=== PATIENT | male | born 1945 | race Caucasian/White ===

== ENCOUNTER → 2017-01-28 05:34 | Emergency (ER) | payer MEDICARE, OTHER ==
[2017-01-28 06:35] LABS: Hematocrit 45 % (42-52); Hemoglobin 15.1 g/dl (14.0-18.0); Mean Corpuscular HGB Conc 34 g/dl (31-36); Mean Corpuscular Hemoglobin 29 pg (27-31); Mean Corpuscular Volume 85 fL (80-94); Mean Platelet Volume 8 um3 (7.4-10.4); Red Blood Count 5.29 10^6/ul (4.0-5.4); Red Cell Distribution Width 15 % (10.5-15); White Blood Count 7.3 10^3/ul (3.5-10.8)
[2017-01-28 06:58] LABS: Albumin 4.2 g/dL (3.2-5.2); BUN/Creatinine Ratio 24.7 (8-20); Calcium 8.8 mg/dL (8.6-10.3); EGFR African American 113.9 (>60); EGFR Non-African American 88.6 (>60); Globulin 2.2 g/dL (2-4); Potassium 4.1 mmol/L (3.5-5.0); Total Bilirubin 0.8 mg/dL (0.2-1.0); Total Protein 6.4 g/dL (6.4-8.9)
--- NOTE | 2017-01-28 06:59 | ED ---
Mohinder Garcia SooYoung, scribed for Alex Dominguez MD on 01/28/17 at 0549 . 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 Per , pt woke up with a scream and his R arm was sticking straight out. Pt wasn't shaking, but he was "clearly having some sort of episode." She states it lasted approx 15 minutes. Denies prev episode similar to this. Pt doesn't remember what happens, remembers reading before bed and getting into the ambulance. States he feels OK now in ED. His health has been OK recently, denies recent illness. PCP is Dr. Francois, last saw him a few months ago. - History of Current Complaint Chief Complaint: EDSeizure Stated Complaint: SEIZURE Time Seen by Provider: 01/28/17 05:45 Hx Obtained From: Patient, Family/Kennel Attendant Onset/Duration: Sudden Onset, Resolved Timing: Intermittent Episodes Lasting: - 15 minutes Current Severity: None Pain Intensity: 0 Pain Scale Used: 0-10 Numeric Associated Signs and Symptoms: Positive: Confusion - mild - Allergy/Home Medications Allergies/Adverse Reactions: Allergies Allergy/AdvReac Type Severity Reaction Status Date / Time No Known Allergies Allergy Verified 03/01/14 09:12 Home Medications: Home Medications Metformin ER (NF) [Glucophage ER 750 MG TAB (NF)] 750 mg PO BID 01/28/17 [ History Confirmed 01/28/17] Minocycline (NF) 100 mg PO DAILY 01/28/17 [History Confirmed 01/28/17] Simvastatin TAB(NF) [Zocor(NF)] 20 mg PO DAILY 01/28/17 [History Confirmed 01/28] PMH/Surg Hx/FS Hx/Imm Hx Previously Healthy: No Endocrine/Hematology History: Reports: Hx Diabetes GI History: Denies: Other GI Disorders Sensory History: Reports: Hx Contacts or Glasses - READING Denies: Hx Hearing Aid Opthamlomology History: Reports: Hx Contacts or Glasses - READING - Surgical History Surgery Procedure, Year, and Place: RETINOPATHY DAMON, 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, [facility] Hx Anesthesia Reactions: No Infectious Disease History: No Infectious Disease History: Denies: Traveled Outside the [place] in Last 30 Days - Family History Known Family History: Positive: Other - neg: anaesthesia reaction - Social History Occupation: Retired Lives: With Family Alcohol Use: None Hx Substance Use: No Substance Use Type: Reports: None Hx Tobacco Use: No Smoking Status (MU): Never Smoked Tobacco Have You Smoked in the Last Year: No Review of Systems Negative: Fever Negative: Cough Neurological: Other - pos: mild confusion All Other Systems Reviewed And Are Negative: Yes Physical Exam Triage Information Reviewed: Yes Vital Signs On Initial Exam: Initial Vitals Temp Pulse Resp BP Pulse Ox 97.1 F 81 18 136/76 92 01/28/17 05:40 01/28/17 05:40 01/28/17 05:40 01/28/17 05:40 01/28/17 05:40 Vital Signs Reviewed: Yes Appearance: Positive: Well-Appearing, No Pain Distress Skin: Positive: Warm Head/Face: Positive: Normal Head/Face Inspection Eyes: Positive: EOMI, MICA ENT: Positive: Hearing grossly normal Neck: Positive: Supple, Nontender Respiratory/Lung Sounds: Positive: Breath Sounds Present Cardiovascular: Positive: RRR Abdomen Description: Positive: Nontender, Soft Bowel Sounds: Positive: Present Musculoskeletal: Positive: Strength/ROM Intact Neurological: Positive: Sensory/Motor Intact, Alert, Oriented to Person Place, Time Psychiatric: Positive: Affect/Mood Appropriate Diagnostics - Vital Signs Vital Signs Temp Pulse Resp BP Pulse Ox 01/28/17 05:40 97.1 F 81 18 136/76 92 - Laboratory Lab Results: Lab Results 01/28/17 01/28/17 01/28/17 Range/Units 06:25 06:25 06:25 WBC 7.3 (3.5-10.8) 10^3/ul RBC 5.29 (4.0-5.4) 10^6/ul Hgb 15.1 (14.0-18.0) g/dl Hct 45 (42-52) % MCV 85 (80-94) fL MCH 29 (27-31) pg MCHC 34 (31-36) g/dl RDW 15 (10.5-15) % Plt Count 113 L (150-450) 10^3/ul MPV 8 (7.4-10.4) um3 Neut % (Auto) 85.8 H (38-83) % Lymph % (Auto) 7.1 L (25-47) % [place] % (Auto) 3.8 (1-9) % Eos % (Auto) 1.9 (0-6) % Baso % (Auto) 1.4 (0-2) % Absolute Neuts (auto) 6.3 (1.5-7.7) 10^3/ul Absolute Lymphs (auto) 0.5 L (1.0-4.8) 10^3/ul Absolute Monos (auto) 0.3 (0-0.8) 10^3/ul Absolute Eos (auto) 0.1 (0-0.6) 10^3/ul Absolute Basos (auto) 0.1 (0-0.2) 10^3/ul Absolute Nucleated RBC 0 10^3/ul Nucleated RBC % 0 INR (Anticoag Therapy) 0.94 (0.89-1.11) Sodium 132 L (133-145) mmol/L Potassium 4.1 (3.5-5.0) mmol/L Chloride 103 (101-111) mmol/L Carbon Dioxide 22 (22-32) mmol/L Anion Gap 7 (2-11) mmol/L BUN 21 (6-24) mg/dL Creatinine 0.85 (0.67-1.17) mg/dL Est GFR ( Amer) 113.9 (>60) Est GFR (Non-Af Amer) 88.6 (>60) BUN/Creatinine Ratio 24.7 H (8-20) Glucose 269 H (70-100) mg/dL Lactic Acid (0.5-2.0) mmol/L Calcium 8.8 (8.6-10.3) mg/dL Magnesium 2.0 (1.9-2.7) mg/dL Total Bilirubin 0.80 (0.2-1.0) mg/dL AST 17 (13-39) U/L ALT 21 (7-52) U/L Alkaline Phosphatase 60 (34-104) U/L Total Protein 6.4 (6.4-8.9) g/dL Albumin 4.2 (3.2-5.2) g/dL Globulin 2.2 (2-4) g/dL Albumin/Globulin Ratio 1.9 (1-3) 01/28/17 Range/Units 06:25 WBC (3.5-10.8) 10^3/ul RBC (4.0-5.4) 10^6/ul Hgb (14.0-18.0) g/dl Hct (42-52) % MCV (80-94) fL MCH (27-31) pg MCHC (31-36) g/dl RDW (10.5-15) % Plt Count (150-450) 10^3/ul MPV (7.4-10.4) um3 Neut % (Auto) (38-83) % Lymph % (Auto) (25-47) % [place] % (Auto) (1-9) % Eos % (Auto) (0-6) % Baso % (Auto) (0-2) % Absolute Neuts (auto) (1.5-7.7) 10^3/ul Absolute Lymphs (auto) (1.0-4.8) 10^3/ul Absolute Monos (auto) (0-0.8) 10^3/ul Absolute Eos (auto) (0-0.6) 10^3/ul Absolute Basos (auto) (0-0.2) 10^3/ul Absolute Nucleated RBC 10^3/ul Nucleated RBC % INR (Anticoag Therapy) (0.89-1.11) Sodium (133-145) mmol/L Potassium (3.5-5.0) mmol/L Chloride (101-111) mmol/L Carbon Dioxide (22-32) mmol/L Anion Gap (2-11) mmol/L BUN (6-24) mg/dL Creatinine (0.67-1.17) mg/dL Est GFR ( Amer) (>60) Est GFR (Non-Af Amer) (>60) BUN/Creatinine Ratio (8-20) Glucose (70-100) mg/dL Lactic Acid 3.4 H* (0.5-2.0) mmol/L Calcium (8.6-10.3) mg/dL Magnesium (1.9-2.7) mg/dL Total Bilirubin (0.2-1.0) mg/dL AST (13-39) U/L ALT (7-52) U/L Alkaline Phosphatase (34-104) U/L Total Protein (6.4-8.9) g/dL Albumin (3.2-5.2) g/dL Globulin (2-4) g/dL Albumin/Globulin Ratio (1-3) Result Diagrams: 01/28/17 06:25 01/28/17 06:25 Lab Statement: Any lab studies that have been ordered have been reviewed, and results considered in the medical decision making process. - CT BRAIN CT CT Interpretation: No Acute Changes - IMPRESSION: Involutional changes with mild to moderate ventriculomegaly. No visible acute infarct. No mass. No hemorrhage. Osseous structures are intact. CT Interpretation Completed By: Radiologist NIH Scale - NIH Scale Level of Consciousness: Alert/Keenly Responsive Ask Patient the Month and His/Her Age: Both Correct Ask Pt to Open/Close Eyes and Academic Records Specialist/Release Non-Paretic Hand: Both Correctly Best Gaze (Only Horizontal Eye Movement): Normal Visual Field Testing: No Visual Loss Facial Paresis-Pt to Smile & Close Eyes or Grimace Symmetry: Normal/Symmetrical Motor Function - Right Arm: No Drift-Holds 10 Seconds Motor Function - Left Arm: No Drift-Holds 10 Seconds Motor Function - Right Leg: No Drift-Holds 10 Seconds Motor Function - Left Leg: No Drift-Holds 10 Seconds Limb Ataxia-Must be out of Proportion to Weakness Present: Absent Sensory (Use Pinprick to Test Arms/Legs/Trunk/Face): Normal Best Language (Describe Picture, Name Items): No Aphasia Dysarthria (Read Several Words): Normal Extinction and Inattention: No Abnormality Total Score: 0 Course/Dx - Course Course Of Treatment: Pt is a 72 y/o M BIBA 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 Per , pt woke up with a scream and his R arm was sticking straight out. Pt wasn't shaking, but he was "clearly having some sort of episode." Episode lasted approx 15 minutes. No prev episode similar to this. Pt doesn't remember what happens. States he feels OK now in ED. Denies any recent illness. PCP is Dr. Francois, last saw him a few months ago. Blood work results are without any significant abnormalities. Brain CT is nml. SO at shift change to Dr. Ram, pending EKG, UA results. - Diagnoses Provider Diagnoses: Seizure Discharge - Discharge Plan Condition: Stable Disposition: HOME Discharge Disposition Comment: SO at shift change to Dr. Ram, pending EKG, UA results. Prescriptions: levETIRAcetam TAB* [Keppra TAB*] 1,500 mg PO BID #90 tab Patient Education Materials: Nonepileptic Seizures (ED) Referrals: Alex Ramirez MD [Medical Doctor] - 02/25/17 (Follow up with Dr. Ramirez in 3- 4 weeks. ) Ishan Francois MD [Primary Care Provider] - 7 Days The documentation as recorded by the Mohinder piper SooYoung accurately reflects the service I personally performed and the decisions made by me, Alex Dominguez MD.
--- NOTE | 2017-01-28 08:56 | RAD ---
Indication: New onset seizure. Comparison: No relevant prior exams available on the [facility] [place] for [place]. Technique: Noncontrast CT vertex of skull through foramen magnum. Report: Mild prominence of the cerebral sulci. Mild prominence of the ventricles. Unremarkable basal cisterns. Negative for bello matter white matter obscuration, intra or extra-axial hemorrhage, or mass effect. Atherosclerotic calcification noted at the vertebral arteries and intracranial internal carotid arteries. Unremarkable partially visualized orbital structures. No suspicious calvarial or skull base lesions. Clear visualized paranasal sinuses and mastoid air spaces. Unremarkable scalp. IMPRESSION: Mild involutional change. No mass effect or acute intracranial process evident.
--- NOTE | 2017-01-28 12:01 | RAD ---
HISTORY: Seizure COMPARISONS: Head CT dated January 28, 2017 TECHNIQUE: The following sequences were obtained of the head: Sagittal T1-weighted images, axial T2-weighted images, axial FLAIR images, axial susceptibility weighted images, axial T1-weighted images, coronal T1, T2 and FLAIR images through the mesial temporal lobes. Additionally, axial diffusion-weighted images were obtained with calculated apparent diffusion coefficients. FINDINGS: HEMORRHAGE/INFARCT: There is no hemorrhage or acute infarct. MASSES/SHIFT: There is no mass or shift. EXTRA-AXIAL SPACES/MENINGES: There are no extra-axial fluid collections. SULCI AND VENTRICLES: There is mild and proportional enlargement of the sulci and ventricles. CEREBRUM: There is a small focus of elevated T2/FLAIR signal periventricular and subcortical white matter. The mesial temporal lobes are symmetric in size, architecture, and signal intensity. The collateral white matter bundles are symmetric. The mamillary bodies and temporal horns of the lateral ventricles are symmetric in size. There is no appreciable cortical dysplasia or heterotopia.. BRAINSTEM: There are no focal parenchymal abnormalities. CEREBELLUM: There are no focal parenchymal abnormalities. The cerebellar tonsils are normal in size and position. SELLA: The sella is normal. PINEAL: The pineal region is clear. CP ANGLE/TEMPORAL BONES: The labyrinthine structures are grossly normal. VESSELS: Normal flow-voids are noted within the visualized vertebral vasculature. DIFFUSION ABNORMALITIES: There are no diffusion abnormalities. PARANASAL SINUSES/MASTOIDS: The paranasal sinuses are clear. ORBITS: The orbits are unremarkable. BONES AND SOFT TISSUE: No bone or soft tissue abnormalities are noted. OTHER: None IMPRESSION: 1. MILD DIFFUSE INVOLUTIONAL CHANGE. 2. THERE ARE MULTIPLE FOCI OF ELEVATED T2/FLAIR SIGNAL WITHIN THE PERIVENTRICULAR AND SUBCORTICAL WHITE MATTER. WHILE THESE FINDINGS ARE NONSPECIFIC, THEY CAN BE SEEN IN ASSOCIATION WITH MIGRAINE HEADACHE, THE SEQUELA OF PREVIOUS INFECTION OR INFLAMMATION, AND CHRONIC SMALL VESSEL ISCHEMIA. DEMYELINATING DISEASE IS ALSO WITHIN THE DIFFERENTIAL, BUT IS CONSIDERED LESS LIKELY IN THE ABSENCE OF THE APPROPRIATE CLINICAL PRESENTATION. 3. THE MESIAL TEMPORAL LOBES ARE SYMMETRIC.
[2017-01-28 16:14] VITALS: BP 135/78
--- NOTE | 2017-01-28 18:52 | ED ---
I, Keith Cameron, scribed for Rome Ram MD on 01/28/17 at 0800 . Progress - Progress Note Progress Note: The patient is a sign out from Dr. Dominguez at shift change. The patient reports that he is tired. He denies a HOLLIS at this time. EKG at 08:15 reveals sinus rhythm at [address] elevations. At 08:41, I consulted with Dr. Ramirez, neurology. Dr. Ramirez does not think that the patient had a seizure. He recommended that the patient be discharged and follow up with him. When I re-examined the patient at 08:47, the says (different from Dr. Parish account of events) that the patient was stiff, foaming at the mouth, and could not be woken up for 10 minutes. They furthermore state he was postictal until he got to the ED (20-22 minutes after the start of the episode) . I consulted again with Dr. Ramirez at 09:03 and informed him of the new information. I will now order an EEG and Brain MRI. Brain MRI reveals 1. MILD DIFFUSE INVOLUTIONAL CHANGE. 2. THERE ARE MULTIPLE FOCI OF ELEVATED T2/FLAIR SIGNAL WITHIN THE PERIVENTRICULAR AND SUBCORTICAL WHITE MATTER. WHILE THESE FINDINGS ARE NONSPECIFIC, THEY CAN BE SEEN IN ASSOCIATION WITH MIGRAINE HEADACHE, THE SEQUELA OF PREVIOUS INFECTION OR INFLAMMATION, AND CHRONIC SMALL VESSEL ISCHEMIA. DEMYELINATING DISEASE IS ALSO WITHIN THE DIFFERENTIAL, BUT IS CONSIDERED LESS LIKELY IN THE ABSENCE OF THE APPROPRIATE CLINICAL PRESENTATION. 3. THE MESIAL TEMPORAL LOBES ARE SYMMETRIC. I consulted again with Dr. Ramirez at 12:25, who will come to the ED to see the patient. The patient is stable and will be discharged. He is instructed to follow up with Dr. Ramirez in 3-4 weeks. Course/Dx - Course Course Of Treatment: The patient is a sign out from Dr. Dominguez at shift change. The patient reports that he is tired. He denies a HOLLIS at this time. EKG at 08:15 reveals sinus rhythm at [address] elevations. At 08:41, I consulted with Dr. Ramirez, neurology. Dr. Ramirez does not think that the patient had a seizure. He recommended that the patient be discharged and follow up with him. When I re-examined the patient at 08:47, the says (different from Dr. Parish account of events) that the patient was stiff, foaming at the mouth, and could not be woken up for 10 minutes. They furthermore report that the patient was postictal until he got to the ED (20-22 minutes after the start of the episode). I consulted again with Dr. Ramirez at 09:03 and informed him of the new information. I will now order an EEG and Brain MRI. I consulted again with Dr. Ramirez at 12:25, who will come to the ED to see the patient. Bloodwork is without significant abnormality except glucose 269. Head CT shows no acute intracranial pathology. I interviewed the patient and the patients daughter and , and they report that the patient made a loud sound and screamed/moaned and then immediately had stiffness of his entire body for about 5 minutes with foaming at the mouth. After this, he became confused for about 30-40 minutes. Therefore, I discussed the case with Dr. Shook, who ordered an MRI of the brain and an EEG. After he reviewed the test results, he came down and consulted for the patient. He reported in fact that the patient seems to have had seizure activity; therefore, he requests to give the patient Keppra 1g bolus and then give a prescription of Keppra 400mg in the morning and 1000mg at night and to follow up with him in 3-4 weeks. He is hemodynamically stable and alert and oriented x3. - Diagnoses Provider Diagnoses: Seizure - Provider Notifications Discussed Care Of Patient With: Alex Ramirez Time Discussed With Above Provider: 08:47 Instructed by Provider To: Other - Dr. Ramirez, neurology, does not think that the patient had a seizure. He recommended that the patient be discharged and follow up with him. I consulted again with Dr. Ramirez at 09:03 and informed him of the new information. I will now order an EEG and Brain MRI. The documentation as recorded by the Nisha piper Thomas accurately reflects the service I personally performed and the decisions made by me, Rome Ram MD.
--- NOTE | 2017-01-28 20:11 | CONS ---
CONSULTATION REPORT: DATE OF CONSULT: 01/28/17 - EMERGENCY DEPT PATIENT OF: Dr. Ram. HISTORY OF PRESENT ILLNESS: This is a 72-year-old man who presented in the cardiovascular technologist with a probable seizure. His was sleeping and was awoken by an odd groan and found him with his right arm stiff right in front of him and he was unresponsive. He then developed generalized clonic activity, had teeth clenching and lost his urine. This entire seizure lasted about 10 to 15 minutes that the witnessed and then was confused and lethargic afterwards. He has had no prior seizures or staring spells. He has no history of depression. There is no family history for seizures. He drives. He has a history of diabetes and hypercholesterolemia. PAST SURGICAL HISTORY: He has had no recent surgeries. MEDICATIONS: Include: 1. Metformin 750 twice a day. 2. Simvastatin 20 mg daily. 3. Minocycline 100 mg daily. FAMILY HISTORY: There is no family history for seizures. SOCIAL HISTORY: He does not smoke, use drugs or drink alcohol. He does not have a history of hyperglycemia, although does not check his blood sugar at home. His blood sugar tends to run on the high side. REVIEW OF SYSTEMS: Negative in all 14 spheres other than the HPI. PHYSICAL EXAM: Vital Signs: Temperature 97.1, pulse 72, respirations 18, blood pressure 145/74. He is alert and oriented with normal speech and comprehension. Cranial nerves II through XII were intact. Fundi showed sharp discs. Motor exam revealed normal tone and strength, coordination and gait. Fine motor was intact on the right side as well as left. No pronator drift. Sensation intact to light touch. Reflexes were 1 and equal with downgoing toes. Chest: Clear. Cardiovascular: Regular rate and rhythm. Abdomen: Soft with positive bowel sounds. Neck was supple. DIAGNOSTIC STUDIES/LAB DATA: I reviewed his MRI scan, which showed some diffuse white matter disease, most likely from small vessel ischemic disease. His EEG showed some rare sharply contoured waves in his left frontotemporal area suspicious for epileptiform potentials. His white count was 7.3, hematocrit 45, platelets 111,000. Normal INR. CMP had a sodium of 132, glucose 269, lactic acid 3.4, otherwise normal. CT scan was also done, which did not show any additional findings. MRI scan was more informative. IMPRESSION: I discussed with Edilberto and his who I spoke to on the phone that he had most likely a partial seizure, which was relatively prolonged, lasting at least 10 to 15 minutes and had secondary generalization. The most likely etiology might be small old scar in from the small vessel ischemic disease. Given the length of the seizure and that he had focal seizures secondary to a scar and that he strongly wants to drive in the future, it would be most reasonable to have him on anticonvulsants to discuss options. There is no history of depression or mood issues and we are going to begin him on Keppra and I discussed side effects. At this time, he will get 1000 mg IV in the ER and then to begin 500 in the morning and 1000 at night, first dose tonight. I discussed seizure precautions in terms of no high heights, be careful around water and that he is not going to drive a car until this is reported to DMV. I discussed with him that it may be months before the DMV would sign off on him driving. He will go home with Keppra as discussed and get a level in a few weeks. I will see him back in the office in about 5 weeks ' time. Family is aware that the Keppra will increase protection against seizures, but not a guarantee that seizures will not recur. Thank you for sharing his case. [id number]/[facility] #: [id number] LIDIA
--- NOTE | 2017-01-29 00:44 | EEG ---
ELECTROENCEPHALOGRAPHY: DATE OF STUDY: 01/28/17 - EMERGENCY DEPT PATIENT OF: Dr. Ram in [facility]. CLINICAL PROBLEM: This 72-year-old man being evaluated for probable new onset of seizure in his sleep. MEDICATIONS: None listed. REPORT: With the patient awake, background cerebral activity consists of admixed beta frequency up to 15 Hz with admixed alpha range frequencies. There is rare suspicious sharply contoured activity in the left frontotemporal head region. This patient's sleep background consists of diffuse delta and theta activity. CLINICAL IMPRESSION: No clearcut epileptiform potentials are noted during this awake and sleep EEG, but there are some sharply contoured waves noted in the left frontotemporal head region that are suspicious for epileptiform discharges. [id number]/[facility] #: [id number] [facility]ERS[facility] HOSPITALLorena
== END | disposition home or self-care (01) ==
LOC: ED 05:34
DX: R56.9 Unspecified convulsions (principal); R41.0 Disorientation, unspecified
CPT/HCPCS: 36415; 70450; 70551; 80053; 83605; 83735; 85025; 85610; 93005; 95819; 99284

== ENCOUNTER 2017-05-18 09:10 | Day surgery (SDC) | payer MEDICARE, OTHER ==
[~2017-05-18 09:10] MED LIST: Acetaminophen TAB* 325 MG PO PRN; Buffered Lidocaine 0.9% SYRIN* 5 ML/SYR SYRINGE INTRADERM ONE
[2017-05-18] MEDS ORDERED: Midazolam* 1 MG/ML 5 ML VIAL (5 MG) ONE (10:55)
[2017-05-18] MEDS ORDERED: fentaNYL* 50 MCG/ML 2 ML VIAL (100 MCG VIAL) ONE (10:55)
[2017-05-18 12:38] VITALS: BP 131/73
[2017-05-18] MEDS ORDERED: Cyclopentolate 1% OPTH.SOL* 2 ML BTL ONE (14:17)
[2017-05-18] MEDS ORDERED: Neomycin/Polymy/Dex OPHTH.OIN* 3.5 GM ONE (14:17)
[2017-05-18] MEDS ORDERED: Tropicamide 1% OPTH.SOL* BTL ONE (14:17)
[2017-05-18] MEDS ORDERED: Lidocaine 1% MPF* 2 ML VIAL ONE (14:17)
[2017-05-18] MEDS ORDERED: Phenylephrine 2.5% OPTH.SOL* 2 ML BTL ONE (14:17)
[2017-05-18] MEDS ORDERED: Ketorolac 0.5% OPHTH (NF) 0.5 % 5 ML BTL ONE (14:17)
[2017-05-18] MEDS ORDERED: Tetracaine 0.5% OPTH.SOL 4 ML* 1 DROP BTL ONE (14:17)
[2017-05-18] MEDS ORDERED: Phenylephr/Ketorolac 1%/0.3% OPH DROP BTL ONE (16:23)
--- NOTE | 2017-05-19 02:51 | OP ---
DATE OF OPERATION: 05/18/17 [facility] DATE OF : 45 SURGEON: Dr. Kris De Souza. FINANCIAL ADVISER: None. ANESTHESIOLOGIST: Keith Sifuentes MD ANESTHESIA: Topical with intravenous sedation. PRE-OP DIAGNOSIS: Cataract, left eye. POST-OP DIAGNOSIS: Cataract, left eye. OPERATIVE PROCEDURE: Phacoemulsification and cataract extraction with posterior chamber intraocular lens implant, left eye. COMPLICATIONS: None. BLOOD LOSS: None. DESCRIPTION OF PROCEDURE: The patient was brought to the operating room and received a small amount of intravenous sedation. A drop of Tetracaine was placed in his left eye. He was prepped and draped in the usual sterile fashion for ophthalmic surgery and attention was directed to the left eye where a speculum was placed. A paracentesis was created at the 5 o'clock position and 0.1 cc of 1 percent preservative-free Lidocaine was injected into the anterior chamber followed by DisCoVisc. The eye was digitally stabilized while a 2.75 mm keratome was used to create a triplanar clear corneal incision at the 3 o'clock position. A continuous curvilinear capsulorrhexis was created with a cystotome and Utrata forceps. BSS on a cannula was used to hydrodissect the lens from the capsule. Phacoemulsification was performed in a [id number] technique to create four fragments which were removed. Residual cortical material was removed with irrigation and aspiration. DisCoVisc was used to inflate the capsular bag and an [id number] 21.5 diopter lens was folded and inserted into the capsular bag. DisCoVisc was removed using irrigation and aspiration. BSS on a cannula was used to hydrate the corneal stroma and seal the wound. At the end of the case the pupil was round and the lens was centered. The eye was of normal pressure and the wound was water tight. The speculum was removed and topical Maxitrol ointment was placed on the surface of the eye. The eye was closed, patched and shielded and the patient was sent to the recovery room in stable condition with post operative instructions and follow-up appointment given. [id number]/[facility] #: [id number] MTDD
== END 2017-05-18 12:41 | disposition home or self-care (01) ==
LOC: OREAST 09:10
PROVIDERS: ATTEND Ophthalmology
DX: E11.36 Type 2 diabetes mellitus with diabetic cataract (principal); H25.12 Age-related nuclear cataract, left eye; Z79.84 Long term (current) use of oral hypoglycemic drugs; E78.00 Pure hypercholesterolemia, unspecified; R56.9 Unspecified convulsions; R53.83 Other fatigue
CPT/HCPCS: A9270-GY; C9447; J2250; J3010

== ENCOUNTER 2017-05-25 06:28 | Day surgery (SDC) | payer MEDICARE, OTHER ==
[2017-05-25] MEDS ORDERED: fentaNYL* 50 MCG/ML 2 ML VIAL (100 MCG VIAL) ONE (07:30)
[2017-05-25] MEDS ORDERED: Midazolam* 1 MG/ML 2 ML VIAL (2 MG) ONE (07:30)
[2017-05-25] MEDS ORDERED: Phenylephr/Ketorolac 1%/0.3% OPH DROP BTL ONE (07:56)
[2017-05-25] MEDS ORDERED: Tetracaine 0.5% OPTH.SOL 4 ML* 1 DROP BTL ONE (07:57)
[2017-05-25] MEDS ORDERED: Phenylephrine 2.5% OPTH.SOL* 2 ML BTL ONE (07:57)
[2017-05-25] MEDS ORDERED: Ketorolac 0.5% OPHTH (NF) 0.5 % 5 ML BTL ONE (07:57)
[2017-05-25] MEDS ORDERED: Neomycin/Polymy/Dex OPHTH.OIN* 3.5 GM ONE (07:57)
[2017-05-25] MEDS ORDERED: Tropicamide 1% OPTH.SOL* BTL ONE (07:57)
[2017-05-25] MEDS ORDERED: Lidocaine 1% MPF* 2 ML VIAL ONE (07:57)
[2017-05-25] MEDS ORDERED: Cyclopentolate 1% OPTH.SOL* 2 ML BTL ONE (07:57)
[2017-05-25 08:54] VITALS: BP 135/74
--- NOTE | 2017-05-26 00:22 | OP ---
DATE OF OPERATION: 05/25/17 [facility] DATE OF : 45 SURGEON: Dr. Kris De Souza. VPK TEACHER: None. ANESTHESIA: Topical with intravenous sedation. PRE-OP DIAGNOSIS: Cataract, right eye. POST-OP DIAGNOSIS: Cataract, right eye. OPERATIVE PROCEDURE: Phacoemulsification and cataract extraction with posterior chamber intraocular lens implant, right eye. COMPLICATIONS: None. BLOOD LOSS: None. DESCRIPTION OF PROCEDURE: The patient was brought to the operating room and received a small amount of intravenous sedation. A drop of Tetracaine was placed in his right eye. He was prepped and draped in the usual sterile fashion for ophthalmic surgery and attention was directed to the right eye where a speculum was placed. A paracentesis was created at the 11 o'clock position and 0.1 cc of 1 percent preservative-free Lidocaine was injected into the anterior chamber followed by DisCoVisc. The eye was digitally stabilized while a 2.75 mm keratome was used to create a triplanar clear corneal incision at the 9 o'clock position. A continuous curvilinear capsulorrhexis was created with a cystotome and Utrata forceps. BSS on a cannula was used to hydrodissect the lens from the capsule. Phacoemulsification was performed in a divide-and- conquer technique to create four fragments which were removed. Residual cortical material was removed with irrigation and aspiration. DisCoVisc was used to inflate the capsular bag and an AU00T0 20.5 diopter lens was folded and inserted into the capsular bag. DisCoVisc was removed using irrigation and aspiration. BSS on a cannula was used to hydrate the corneal stroma and seal the wound. At the end of the case the pupil was round and the lens was centered. The eye was of normal pressure and the wound was water tight. The speculum was removed and topical Maxitrol ointment was placed on the surface of the eye. The eye was closed, patched and shielded and the patient was sent to the recovery room in stable condition with post operative instructions and follow-up appointment given. [id number] #: [id number] MTDD
== END 2017-05-25 08:35 | disposition home or self-care (01) ==
LOC: OREAST 06:28
PROVIDERS: ATTEND Ophthalmology
DX: H25.11 Age-related nuclear cataract, right eye (principal); R53.83 Other fatigue; E11.9 Type 2 diabetes mellitus without complications; Z79.84 Long term (current) use of oral hypoglycemic drugs; E78.00 Pure hypercholesterolemia, unspecified; R56.9 Unspecified convulsions
CPT/HCPCS: A9270-GY; C9447; J2250; J3010; V2632

== ENCOUNTER → 2018-08-18 08:21 | Day surgery (SDC) | payer MEDICARE, OTHER ==
[~2018-08-18 08:21] MED LIST changes: +ATORVASTATIN CALCIUM 40 MG PO SCH; -Acetaminophen TAB* 325 MG PO PRN; +Aspirin 81 mg CHEW TAB* 81 MG TAB.CHEW ONE; +Aspirin 81 mg CHEW TAB* 81 MG TAB.CHEW PO SCH; -Buffered Lidocaine 0.9% SYRIN* 5 ML/SYR SYRINGE INTRADERM ONE; +Cyanocobalamin TAB* 500 MCG PO SCH; +Diazepam TAB(*) 5 MG ONE; +Heparin 2 UNITS/ML IVPREMIX* 3,000 UNIT/1,500 ML BAG IV ONE; +Heparin(*) 1000 UNIT/ML 10 ML VIAL CATH LAB IV ONE; +Iohexol 350 (CONTRAST) 200 ML MDV IV ONE; +Lidocaine 1% INJ* 10 MG/ML 30 ML SDV ONE; +Metoprolol Succinate XL TAB* 25 MG PO SCH; +Midazolam* 1 MG/ML 5 ML VIAL (5 MG) ONE; +NS 0.9% 1000 ML** 1,000 ML IV SCH; +VERAPAMIL 2.5 MG/ML 2 ML VIAL ** 5 mg/2 ml ONE; +diPHENhydraMINE PO* 25 MG ONE; +fentaNYL* 50 MCG/ML 2 ML VIAL (100 MCG VIAL) ONE; +levETIRAcetam TAB* 500 MG PO SCH; +nitroGLYCERIN DRIP* 25,000 MCG/250 ML BTL ONE
[2018-08-18 14:00] VITALS: BP 127/79
--- NOTE | 2018-08-18 14:53 | CATH ---
CC: Dr. Jose R Montanez, [facility]; Dr. Ash Ahmadi; Dr. Kris Gardner, Department of Cardiovascular Surgery, [place], [place] * CARDIAC CATHETERIZATION REPORT: DATE OF PROCEDURE: 08/18/18 - [facility] CATH INDICATION FOR THE PROCEDURE: Asked by Dr. Jose R Montanez (the patient's primary guest services coordinator) to perform diagnostic coronary catheterization in light of abnormal exercise stress test, symptoms of angina, and a reported markedly abnormal coronary CTA suggesting a 75% left main lesion and an ill-defined proximal LAD. PROCEDURES: Coronary arteriography, left heart catheterization, left ventriculography. CONSENT: The patient was interviewed and examined in the holding area, where the risks and benefits were explained. He and his understood them and he wished to proceed. PRE-CARDIAC CATHETERIZATION LABORATORY RESULTS: Hemoglobin and hematocrit of 15.3 and 44 with a platelet count of 156,000. BUN and creatinine of 16 and 0.9 , sodium 138, potassium 4.3, chloride 102, bicarb 28. INR was 0.96. APPROACH TAKEN: In the holding area of the cathode ray tube salvage processor, the patient's right radial artery was ultrasound and found to be acceptable for an approach and as such, this was the approach taken. EQUIPMENT UTILIZED: 1. Right radial artery sheath - A 6-South African Glidesheath. 2. Diagnostic coronary catheters - A 5-South African TIG 4 curve catheter for the right coronary artery and a 5-South African FL3.5 curve catheter for the left coronary artery. 3. The diagnostic guidewire - A 260 length Lay curved guidewire. 4. The left heart catheterization catheter was a 5-South African TIG Performa radial catheter. 5. Closure device was a radial band by [employer]. MEDICATIONS GIVEN: Included Benadryl 25 mg, Valium 2.5 mg p.o. The patient had already taken his aspirin 81 mg. DESCRIPTION OF PROCEDURE: The patient was brought to the cardiovascular laboratory, where a formal time-out was performed. He was prepped and draped in a sterile fashion and the right radial artery area was anesthetized with 1% lidocaine. Under ultrasound guidance, the right radial artery was cannulated and the sheath was placed. Diagnostic coronary arteriography was performed followed by central aortic pressure measured in the ascending aorta with a pigtail catheter. The catheter was passed across the aortic valve into the left ventricle, where left ventricular pressure was recorded and left ventriculography was performed utilizing a total of 28 cc of Omnipaque dye at a rate of 14 cc per second. The catheter was then pulled back across the aortic valve to recheck gradient. Following this, the catheter and the sheath was removed and hemostasis was obtained with the Vasc Band. The reverse Barbeau was a B. The total contrast used was 93 cc of Omnipaque dye. The radiation exposure included 7 minutes of fluoro time. The air kerma radiation was 1484 mGy. The DAP radiation was 8015 microgray per m2. RESULTS: HEMODYNAMIC DATA: Left heart catheterization revealed central aortic pressure of 157/72 with a mean of 109, left ventricular pressure 155 over left ventricular end- diastolic pressure of 13. LEFT VENTRICULOGRAPHY: Performed in the RODRIGUEZ projection revealed symmetrical contraction of the left ventricle with minimal high anterior wall hypokinesis. Overall EF estimated at 55%. No mitral regurgitation was noted. CORONARY ARTERIOGRAPHY: A. Right coronary artery - A dominant vessel supplying a small first acute marginal branch. The second acute marginal branch was a cvnljvyn-rl-sfrum caliber vessel, which extended to the mid inferior apical region supplying the mid inferior apical wall and also helping supply collaterals to the left anterior descending artery in a retrograde fashion. The continuation of the right coronary artery supplied a smaller posterior descending artery, which supplied the proximal to mid segment and small posterior left ventricular branches. Of note, prior to the posterior descending artery, right near the takeoff of the AV david branch, there was a mild narrowing of 35% seen. B. Left coronary artery: 1. Left main - Heavily calcified particularly in its mid to distal region with narrowing of approximately 35% to 40% when viewed in the BENINESE caudal projection and the RODRIGUEZ caudal projection, basing it on where the totally occluded LAD appears to originate from. 2. Left anterior descending artery - Totally occluded proximal with a thread-like small segment with retrograde filling via the right coronary artery as described earlier. 3. Circumflex artery - A nondominant vessel supplying a high first obtuse marginal branch followed by a second obtuse marginal branch from a very short distance past that point. The ostium of these vessels is not well defined , but appeared to have iywn-mt-jpmaviyl narrowing (40-50%). The continuation of circumflex in the AV groove supplied a small third obtuse marginal branch and ended in a moderate size fourth obtuse marginal branch. OVERALL ASSESSMENT: Fairly well preserved left ventricular systolic function with high anterior wall hypokinesis seen with normal ejection fraction. Significant coronary artery disease involving a totally occluded ostial/proximal LAD with retrograde filling from the right coronary artery. I am not convinced that the distal left main is significant given where I believe the takeoff of the left anterior descending artery is. After that point, clearly the beginning portion of the circumflex is a smaller caliber. I suggest correlation with the CTA performed in [facility] with the radiologist, cardiothoracic surgeon, and guest services coordinator to be able to further analyze where the left main takeoff potentially originates. With the heavy calcification, I am not sure we would be able to see this by IVUS due to significant shadowing. I discussed the case with Dr. Montanez, who agreed with this approach at this point. I will personally speak with Dr. Kris Gardner and plan to send them a CD of this study in addition to e-mailing him the study so he can review this with his guest services coordinator and the radiology department. [id number]/CPS #: [id number] LIDIA
== END | disposition home or self-care (01) ==
LOC: CHICATH 08:21
PROVIDERS: ATTEND Internal Medicine Cardiovascular Disease
DX: I25.119 Atherosclerotic heart disease of native coronary artery with unspecified angina pectoris (principal); Z79.84 Long term (current) use of oral hypoglycemic drugs; Z87.891 Personal history of nicotine dependence; E11.69 Type 2 diabetes mellitus with other specified complication; I10 Essential (primary) hypertension; E78.5 Hyperlipidemia, unspecified
CPT/HCPCS: 76937; 93458; A9270-GY; J1644; J2250; J3010

== ENCOUNTER 2018-10-13 05:48 | Day surgery (SDC) | payer MEDICARE, OTHER ==
[~2018-10-13 05:48] MED LIST changes: -ATORVASTATIN CALCIUM 40 MG PO SCH; -Aspirin 81 mg CHEW TAB* 81 MG TAB.CHEW ONE; -Aspirin 81 mg CHEW TAB* 81 MG TAB.CHEW PO SCH; +Buffered Lidocaine 1% SYRIN* 1 ML/SYRINGE INTRADERM ONE; -Cyanocobalamin TAB* 500 MCG PO SCH; -Diazepam TAB(*) 5 MG ONE; -Heparin 2 UNITS/ML IVPREMIX* 3,000 UNIT/1,500 ML BAG IV ONE; -Heparin(*) 1000 UNIT/ML 10 ML VIAL CATH LAB IV ONE; -Iohexol 350 (CONTRAST) 200 ML MDV IV ONE; -Lidocaine 1% INJ* 10 MG/ML 30 ML SDV ONE; -Metoprolol Succinate XL TAB* 25 MG PO SCH; -Midazolam* 1 MG/ML 5 ML VIAL (5 MG) ONE; -NS 0.9% 1000 ML** 1,000 ML IV SCH; -VERAPAMIL 2.5 MG/ML 2 ML VIAL ** 5 mg/2 ml ONE; -diPHENhydraMINE PO* 25 MG ONE; -fentaNYL* 50 MCG/ML 2 ML VIAL (100 MCG VIAL) ONE; -levETIRAcetam TAB* 500 MG PO SCH; -nitroGLYCERIN DRIP* 25,000 MCG/250 ML BTL ONE
[2018-10-13] MEDS ORDERED: Lactated Ringers 1000 ML Bag* 1,000 ML IV SCH (06:00)
[2018-10-13] MEDS ORDERED: ceFAZolin 2 GM PREMIX in ORs 2 GM/50 ML BAG IVPB ONE (06:47)
[2018-10-13] MEDS ORDERED: Buffered Lidocaine 1% SYRIN* 1 ML/SYRINGE INTRADERM ONE (06:47)
[2018-10-13] MEDS ORDERED: Lidocain 1% EPI 1:100,000 * 30 ML MDV ONE (07:12)
[2018-10-13] MEDS ORDERED: Mineral Oil Sterile, TOPICAL* 25 ML BTL ONE (07:12)
[2018-10-13] MEDS ORDERED: Bupivacaine 0.25% SDV PF* 10 ML VIAL INJ ONE ×2 (07:13→07:35)
[2018-10-13] MEDS ORDERED: Naloxone* 0.4 MG/ML 1 ML VIAL IV PRN (07:27)
[2018-10-13] MEDS ORDERED: fentaNYL* 50 MCG/ML 2 ML VIAL (100 MCG VIAL) ONE (07:31)
[2018-10-13] MEDS ORDERED: Midazolam* 1 MG/ML 5 ML VIAL (5 MG) ONE (07:31)
[2018-10-13 09:58] VITALS: BP 126/73
== END 2018-10-13 10:00 | disposition home or self-care (01) ==
LOC: OR 05:48
PROVIDERS: ATTEND Plastic Surgery
DX: C43.71 Malignant melanoma of right lower limb, including hip (principal); E11.9 Type 2 diabetes mellitus without complications; Z79.84 Long term (current) use of oral hypoglycemic drugs; I25.10 Atherosclerotic heart disease of native coronary artery without angina pectoris; Z87.891 Personal history of nicotine dependence
CPT/HCPCS: 88305; A9270-GY; J0690; J2250; J3010; J3490

== ENCOUNTER 2019-08-29 08:20 | Emergency (ER) | payer MEDICARE, OTHER ==
--- NOTE | 2019-08-29 08:53 | ED ---
Neurological HPI - HPI Summary HPI Summary: 74 year old M presenting to [facility] with a chief complaint of leaning to the left while walking last week which lasted 3-4 hours and has since resolved. The patient rates the pain 0/10 in severity. Patient reports that he has noticed a stooped posture recently. Symptoms aggravated by nothing. Patient reports that he called his PCP yesterday and was advised to come to the emergency department for further evaluation. The patient denies any dizziness, back pain, or weakness. He has a history of a seizure in the past. The patient has a history of diabetes. Medication list reviewed. Allergy list reviewed. - History of Current Complaint Chief Complaint: EDNeurologicalDeficit Stated Complaint: GENERAL Time Seen by Provider: 08/29/19 08:37 Hx Obtained From: Patient Onset/Duration: Sudden Onset Timing: Sudden Onset Current Severity: None Pain Intensity: 0 Pain Scale Used: 0-10 Numeric Episode Lasting: Hours Number of Episodes: 1 Aggravating: Nothing Associated Signs and Symptoms: Positive: Negative - Back pain. Negative: Weakness, Dizziness - Allergy/Home Medications Allergies/Adverse Reactions: Allergies Allergy/AdvReac Type Severity Reaction Status Date / Time No Known Allergies Allergy Verified 08/29/19 08:33 Home Medications: Home Medications levETIRAcetam TAB* [Keppra TAB*] 500 mg PO QAM 05/11/17 [History Confirmed 08/28] Atorvastatin Calcium [Lipitor] 80 mg PO DAILY 08/17/18 [History Confirmed ] Metoprolol Succinate XL TAB* [Toprol XL TAB*] 12.5 mg PO BID 08/17/18 [History Confirmed 08/29/19] Aspirin 81 mg PO DAILY 08/18/18 [History Confirmed 08/29/19] Metformin HCl [Metformin HCl ER] 750 mg PO BID 10/04/18 [History Confirmed 08/28] levETIRAcetam [Levetiracetam] 1,000 mg PO QPM 11/25/18 [History Confirmed ] Aspirin 81 mg CHEW TAB* 81 mg PO DAILY 21 Days #21 tab.chew 08/29/19 [Rx] Clopidogrel TAB* [Plavix TAB*] 75 mg PO DAILY 21 Days #21 tab 08/29/19 [Rx] PMH/Surg Hx/FS Hx/Imm Hx Endocrine/Hematology History: Reports: Hx Diabetes Cardiovascular History: Reports: Hx Angina, Hx Cardiomegaly - hardining of arteries, Hx Coronary Artery Disease, Hx Hypercholesterolemia, Hx Hypertension, Hx Myocardial Infarction, Other Cardiovascular Problems/Disorders - high cholesterol Denies: Hx Pacemaker/ICD, Hx Valvular Heart Disease Respiratory History: Denies: Hx Asthma, Hx Chronic Obstructive Pulmonary Disease (COPD) GI History: Denies: Other GI Disorders History: Denies: Hx Chronic Renal Failure, Hx Renal Disease Sensory History: Reports: Hx Cataracts - BILATERAL, Hx Contacts or Glasses - reading Denies: Hx Hearing Aid Opthamlomology History: Reports: Hx Cataracts - BILATERAL, Hx Contacts or Glasses - reading Neurological History: Reports: Hx Seizures - last time 2 years ago Psychiatric History: Denies: Hx Panic Disorder - Cancer History Hx Chemotherapy: No - Surgical History Surgery Procedure, Year, and Place: RETINOPATHY DAMON, 11/2013, [facility]. bilat cataracts extraction with IOL. [facility] basal cell cancer scalp 2013 Hx Anesthesia Reactions: No Infectious Disease History: No Infectious Disease History: Denies: Traveled Outside the [place] in Last 30 Days - Family History Known Family History: Positive: Other - neg: anaesthesia reaction - Social History Alcohol Use: Rare Hx Substance Use: No Substance Use Type: Reports: None Hx Tobacco Use: No Smoking Status (MU): Former Smoker Have You Smoked in the Last Year: No Review of Systems Musculoskeletal: Negative - Back pain Neurological/Mental Status: Negative - Dizziness, Other - Walking differently Negative: Weakness All Other Systems Reviewed And Are Negative: Yes Physical Exam - Summary Physical Exam Summary: Constitutional: Well-developed, Well-nourished, Alert. (-) Distressed Skin: Warm, Dry HENT: Normocephalic; Atraumatic Eyes: Conjunctiva normal Neck: Musculoskeletal ROM normal neck. (-) JVD, (-) Nuchal rigidity Cardio: Rhythm regular, rate normal, Heart sounds normal; Intact distal pulses; Radial pulses are 2+ and symmetric. (-) Murmur Pulmonary/Chest wall: Effort normal. (-) Respiratory distress, (-) Wheezes, (-) Rales Abd: Soft. (-) Tenderness, (-) Distension, (-) Guarding, (-) Rebound Musculoskeletal: (-) Edema Lymph: (-) Cervical adenopathy Neuro: Alert, PERRL, Oriented x3, Strength normal, Cranial nerves II-XII are grossly intact. SILT, Strength 5/5 BUE and BLE, (-) Dysmetria, (-) Nystagmus, ambulates w steady gait; NIHSS 0; GCS 15. Psych: Mood and affect Normal Triage Information Reviewed: Yes Vital Signs On Initial Exam: Initial Vitals Temp Pulse Resp BP Pulse Ox 98.1 F 78 16 107/72 98 08/29/19 08:27 08/29/19 08:27 08/29/19 08:27 08/29/19 08:27 08/29/19 08:27 Vital Signs Reviewed: Yes - [place] Coma Scale Best Eye Response: 4 - Spontaneous Best Motor Response: 6 - Obeys Commands Best Verbal Response: 5 - Oriented Coma Scale Total: 15 Procedures - Sedation Patient Received Moderate/Deep Sedation with Procedure: No Diagnostics - Vital Signs Vital Signs Temp Pulse Resp BP Pulse Ox 08/29/19 08:27 98.1 F 78 16 107/72 98 - Laboratory Result Diagrams: 08/29/19 09:08/29/19 09:27 Lab Statement: Any lab studies that have been ordered have been reviewed, and results considered in the medical decision making process. - CT Brain CT CT Interpretation Completed By: Radiologist Summary of CT Findings: 1. No acute intracranial abnormality by CT (MRI more sensitive for infarct). 2. Mild chronic small vessel ischemic disease is likely. 3. Mild cerebral volume loss. ED physician has reviewed this report. Head CTA CT Interpretation Completed By: Radiologist Summary of CT Findings: 1. ATHEROMATOUS DISEASE. 2. NO INTERNAL CAROTID ARTERY STENOSIS BY NASCET CRITERIA. 3. NO ANEURYSM, VASCULAR MALFORMATION, OCCLUSION, OR STENOSIS OF THE VISUALIZED INTRACRANIAL CIRCULATION. ED physician has reviewed this report. - Ultrasound transthoracic echocardiogram Ultrasound Interpretation Completed By: Radiologist Summary of Ultrasound Findings: Summary: - Left ventricle: The cavity size is normal. Wall thickness is. mildly to moderately increased. Wall motion is normal; there are. no regional wall motion abnormalities. - Atrial septum: No defect or patent foramen ovale is identified. Negative bubble study. - Mitral valve: There is trace regurgitation. - Aortic valve: There is no evidence of stenosis. - Tricuspid valve: There is trace regurgitation. - Pulmonary arteries: Systolic pressure can not be accurately. estimated. - Study data: No prior study is available for comparison. ED physician has reviewed this report. - EKG 09:07 Cardiac Rate: NL - 63 BPM EKG Rhythm: Sinus Rhythm Summary of EKG Findings: An EKG at 09:07 reveals normal sinus rhythm rate of 63 , nml axis, nml intervals. No STEMI. No acute changes. ED physician has reviewed and interpreted this EKG. NIH Scale - NIH Scale Level of Consciousness: Alert/Keenly Responsive Ask Patient the Month and His/Her Age: Both Correct Ask Pt to Open/Close Eyes and Associate Business Analyst/Release Non-Paretic Hand: Both Correctly Best Gaze (Only Horizontal Eye Movement): Normal Visual Field Testing: No Visual Loss Facial Paresis-Pt to Smile & Close Eyes or Grimace Symmetry: Normal/Symmetrical Motor Function - Right Arm: No Drift-Holds 10 Seconds Motor Function - Left Arm: No Drift-Holds 10 Seconds Motor Function - Right Leg: No Drift-Holds 10 Seconds Motor Function - Left Leg: No Drift-Holds 10 Seconds Limb Ataxia-Must be out of Proportion to Weakness Present: Absent Sensory (Use Pinprick to Test Arms/Legs/Trunk/Face): Normal Best Language (Describe Picture, Name Items): No Aphasia Dysarthria (Read Several Words): Normal Extinction and Inattention: No Abnormality Total Score: 0 Re-Evaluation - Re-Evaluation First Eval Re-Evaluation Time: 11:14 Comment: Per cardiology, no Holter monitors are available. Second Eval Re-Evaluation Time: 11:27 Comment: Spoke with Dr. Ramirez who states that it is okay for the patient to have a Holter monitor as an outpatient. Course/Dx - Course Course Of Treatment: 74 y/o male p/w episode of gait abnormality one week ago now resolved. - VSS NAD, PE w normal neuro exam. CT, CTA head negative. D/w neurology who recommends echo (done in ED, normal), Holter monitor (unable to get in ED 2/2 availability, called his PCP who will set up outpatient), and sent home on plavix and aspirin. To follow up w neurology. - Diagnoses Provider Diagnoses: TIA (transient ischemic attack) - Physician Notifications Discussed Care Of Patient With: Alex Ramirez Time Discussed With Above Provider: 09:36 Instructed by Provider To: Other - Spoke with Dr. Ramirez regarding the patient who recommends a CTA and echocardiogram. If those are normal the patient can be sent home on Aspirin and Plavix. Discharge ED - Sign-Out/Discharge Documenting (check all that apply): Patient Departure - Discharge Plan Condition: Stable Disposition: HOME Prescriptions: Aspirin 81 mg CHEW TAB* 81 mg PO DAILY 21 Days #21 tab.chew Clopidogrel TAB* [Plavix TAB*] 75 mg PO DAILY 21 Days #21 tab Patient Education Materials: Transient Ischemic Attack (ED) Referrals: Ash Ahmadi MD [Primary Care Provider] - Additional Instructions: You were seen in the emergency department for he abdomen mildly. We are concerned you may have had TIA. Please take Plavix 75 mg and aspirin 81 mg daily. Please call your primary care doctor to schedule a Holter monitor.. Please follow up with your primary care doctor in next 2-3 days and return to emergency department for confusion,gait abnormality, weakness or numbness, worsening or concerning symptoms. It was a pleasure taking care of you today. - Billing Disposition and Condition Condition: STABLE Disposition: Home - Attestation Statements Document Initiated by Wilderibtony: Yes Documenting Scribe: Renea Craft Provider For Whom rFanklyn is Documenting (Include Credential): Iris Maddox MD Scribe Attestation: IRenea, wilderibed for Iris Maddox MD on 08/30/19 at 1008. Scribe Documentation Reviewed: Yes Provider Attestation: The documentation as recorded by the Renea piper accurately reflects the service I personally performed and the decisions made by , Iris Maddox MD Status of Scribe Document: Viewed
[2019-08-29 09:37] LABS: ABS Eosinophils 0.1 10^3/ul (0-0.6); ABS Monocytes 0.3 10^3/ul (0-0.8); ABS Neutrophils 3.3 10^3/ul (1.5-7.7); Eosinophil % 1.9 %; Hematocrit 40 % (42-52); Hemoglobin 13.9 g/dL (14.0-18.0); Lymphocyte % 20.8 %; Mean Corpuscular HGB Conc 35 g/dL (31-36); Mean Corpuscular Hemoglobin 29 pg (27-31); Mean Corpuscular Volume 84 fL (80-94); Mean Platelet Volume 8.2 fL (7.4-10.4); Platelet Count 123 10^3/uL (150-450); Red Blood Count 4.73 10^6 /uL (4.18-5.48); Red Cell Distribution Width 15 % (10-15); White Blood Count 4.6 10^3/uL (3.5-10.8)
[2019-08-29 09:53] LABS: Albumin 3.7 g/dL (3.2-5.2); Albumin/Globulin Ratio 1.9 (1-3); BUN/Creatinine Ratio 18.4 (8-20); EGFR African American 103.8 (>60); EGFR Non-African American 85.8 (>60); Potassium 3.6 mmol/L (3.5-5.0); Total Bilirubin 1.1 mg/dL (0.2-1.0); Total Protein 5.7 g/dL (6.4-8.9)
--- OUTSIDE RECORDS SUMMARY | 2019-08-29 10:07 | XMS REPORT | Continuity of Care Document ---
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 Problems Active Problems Provider Date Seizure Alex Ramirez MD Onset: 02/19/2017 Note: on Keppra since [facility] discharge; has tolerated some missed doses - occasionally (once?) over entire weekend Cobalamin deficiency Alex Ramirez MD Onset: 06/30/2017 Hypercholesterolemia Kris Malave MD Onset: 07/17/2011 Note: simvastatin in 2013; atorvastatin in 2019 Polyp of colon Kris Malave MD Onset: 07/11/2014 Social History Type Date Description Comments Sex Unknown ETOH Use Rarely consumes alcohol Tobacco Use Start: Unknown End: Patient is a former smoker Unknown Recreational Drug Use Denies Drug Use Smoking Status Reviewed: 06/06/19 Patient is a former smoker Exercise Type/Frequency Exercises regularly Allergies, Adverse Reactions, Alerts Description No Known Drug Allergies Medications Active Medications SIG Qnty Indications Ordering Provider Date Atorvastatin Calcium 1 by mouth every 90tabs R94.39 Jose R Montanez, 08/26 day DO FACC 80mg Tablets Aspirin 1 by mouth every 90tabs Jose R Montanez, 08/16/[address] day DO FACC Metoprolol Succinate half in the am 90tabs R94.39 Jose R Montanez, 2017 ER half in the pm DO FACC 25mg Tablets ER 24HR Metformin HCL 1 by mouth twice Unknown 750mg a day Tablets Keppra take 1 tablet 270tabs Alex Ramirez MD 500mg Tablets every morning and 2 tablets every night Immunizations Description No Information Available Vital Signs Date Vital Result Comment 07/17/2019 2:04pm Height 72 inches 6'0" Weight 198.00 lb Heart Rate 96 /min BP Systolic 123 mmHg BP Diastolic 69 mmHg Respiratory Rate 14 /min O2 % BldC Oximetry 96 % BMI (Body Mass Index) 26.9 kg/m2 06/06/2019 10:47am Height 72 inches 6'0" Weight 198.00 lb with shoes Heart Rate 64 /min BP Systolic Sitting 130 mmHg lue reg cuff BP Diastolic Sitting 74 mmHg lue reg cuff BP Systolic Standing 132 mmHg lue reg cuff BP Diastolic Standing 74 mmHg lue reg cuff Respiratory Rate 14 /min BMI (Body Mass Index) 26.9 kg/m2 Ejection Fraction none Results Description No Information Available Procedures Date Code Description Status 06/06/2019 79897 EKG Tracing & Interpretation Completed Medical Devices Description No Information Available Encounters Type Date Location Provider Dx Diagnosis Office Visit 06/06/2019 [facility] Jose R Montanez, I25.119 Athscl heart 11:20a Of [employer] Finisher DO FACC disease of [place] cor art w unsp ang pctrs I10 Essential (primary) hypertension E78.5 Hyperlipidemia, unspecified I25.2 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, not intractable, w/o stat epi R41.3 Other amnesia R00.1 Bradycardia, unspecified Office Visit 03/21/2019 9:15a [facility] Alex Ramirez, R41.3 Other amnesia Clinic R56.9 Unspecified convulsions Assessments Date Code Description Provider 06/06/2019 I25.119 Atherosclerotic heart disease of [place] Jose Rleonel Werner Montanez, DO FACC coronary artery with 06/06/2019 I10 Essential (primary) hypertension Jose R Montanez DO FACC 06/06/2019 E78.5 Hyperlipidemia, unspecified Jose R Montanez, DO FACC 06/06/2019 I25.2 Old myocardial infarction Jose R Montanez DO FACC 06/06/2019 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
--- OUTSIDE RECORDS SUMMARY | 2019-08-29 10:07 | XMS REPORT | Continuity of Care Document ---
:1945 External Reference #:[id number] Author Name Alex Ramirez MD (transmitted by agent of provider Elizabeth Thurston) Address [address], [place] [address] Care Team Providers Name Role Phone Ash Ahmadi MD - Family Care Team Information Relationship Management Lead Medicine Problems Active Problems Provider Date Seizure Alex Ramirez MD Onset: 02/19/2017 Note: on Keppra [place] [facility] [place]; has tolerated some missed doses - occasionally (once?) over entire weekend Cobalamin deficiency Alex Ramirez MD Onset: 06/30/2017 Note: 168 April 30 2017 Hypercholesterolemia Kris Malave MD Onset: 07/17/2011 Note: simvastatin in 2013; atorvastatin in 2019 Polyp of colon Kris Malave MD Onset: 07/11/2014 Note: transverse TA; in 2008 had 3 small hypers Type 2 diabetes mellitus Kris Malave MD Onset: 03/10/2009 Note: Dr Blue's PE this date lists "poor glycemic control". Coronary atherosclerosis Kris Malave MD Onset: 08/18/2018 Note: cath per Dr José Social History Type Date Description Comments Sex Unknown ETOH Use Rarely consumes alcohol Tobacco Use Start: Unknown End: Patient is a former smoker Unknown Recreational Drug Use Denies Drug Use Smoking Status Reviewed: 07/26/19 Patient is a former smoker Exercise Type/Frequency [...] half in the am 90tabs R94.39 Jose Rleonel Montanez, 2017 ER half in the pm DO FACC 25mg Tablets ER 24HR Metformin HCL 1 by mouth twice Unknown 750mg a day Tablets Keppra take 1 tablet 270tabs Alex Ramirez MD 500mg Tablets every morning and 2 tablets every night Immunizations Description No Information Available Vital Signs Date Vital Result Comment 07/26/2019 8:45am Height 72 inches 6'0" Weight 204.00 lb Heart Rate 56 /min BP Systolic Sitting 122 mmHg BP Diastolic Sitting 80 mmHg BMI (Body Mass Index) 27.7 kg/m2 07/17/2019 2:04pm Height 72 inches 6'0" Weight 198.00 lb Heart Rate 96 /min BP Systolic 123 mmHg BP Diastolic 69 mmHg Respiratory Rate 14 /min O2 % BldC Oximetry 96 % BMI (Body Mass Index) 26.9 kg/m2 Results Description No Information Available Procedures Date Code Description Status 06/06/2019 97583 EKG Tracing & Interpretation Completed 07/11/2014 35720576 Colonoscopy Completed 03/27/2009 45799493 Colonoscopy Completed Medical Devices Description No Information Available Encounters Type Date Location Provider Dx Diagnosis Office Visit 06/06/2019 [facility] Jose Rleonel Montanez, I25.119 [facility] heart 11:20a [employer] DO FACC disease of [place] cor art w unsp ang pctrs I10 Essential (primary) hypertension E78.5 Hyperlipidemia, unspecified I25.2 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, not intractable, w/o stat epi R41.3 Other amnesia R00.1 Bradycardia, unspecified Office Visit 03/21/2019 9:15a [facility] Alex Ramirez, R41.3 Other amnesia Clinic R56.9 Unspecified convulsions Assessments Date Code Description Provider 07/26/2019 G40.909 Epilepsy, unspecified, not intractable, Alex Ramirez MD without status epilepticus 07/26/2019 R41.3 Other amnesia Alex Ramirez MD 07/17/2019 Z86.010 Personal history of colonic polyps Kris Malave MD 07/17/2019 G40.909 Epilepsy, unspecified, not intractable, Kris Malave MD without status epilepticus 07/17/2019 E11.69 Type 2 diabetes mellitus with other Kris Malave MD specified complication 07/17/2019 I25.10 Atherosclerotic heart disease of [place] Kris Malave MD coronary artery with 06/06/2019 I25.119 Atherosclerotic heart disease of [place] Jose R Montanez, DO [facility] coronary artery with 06/06/2019 I10 Essential (primary) hypertension Jose R Montanez, DO FAC 06/06/2019 E78.5 Hyperlipidemia, unspecified Jose R Montanez, DO FAC 06/06/2019 I25.2 Old myocardial infarction Jose R Montanez, DO [facility] 06/06/2019 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 and epileptic Jose R Montanez , DO [facility] syndromes, not intractable, without status epilepticus 06/06/2019 R41.3 Other amnesia Jose R Montanez, DO [facility] 06/06/2019 R00.1 Bradycardia, unspecified Jose R Montanez, DO FAC 03/21/2019 R41.3 Other amnesia Alex Ramirez MD 03/21/2019 R56.9 Unspecified convulsions Alex Ramirez MD Plan of Treatment Future Appointment(s):03/26/2020 9:15 am - Alex Ramirez MD at [id number]/26/2019 - Alex Ramirez MDG40.909 Epilepsy, unspecified, not intractable, without status epilepticusComments:Seizures quiet - discussed the pros and cons of stopping the keppra - he was wondering but since it may affect his driving he did not want to think about it further. Tolerating keppra well.Will get level before next visitNo change in mentation - he will come in sooner for problemsFollow up:1 YEARR41.3 Other amnesia Functional Status Description No Information Available Mental Status Description No Information Available Referrals Description No Information Available
[2019-08-29] MEDS ORDERED: Iodixanol* (CONTRAST) 320 MG/ML 100 ML SDV IV ONE (10:35)
--- NOTE | 2019-08-29 15:22 | ECHO ---
*[facility]* [place] [address] Fax #: [phone] Transthoracic Echocardiogram Patient: Edilberto Haley : 1945 Study Date: 08/29/2019 Age: 74 Gender: M HR: 54 bpm Height: 73 in /185.4 cm BSA: 2.13 m^2 Weight: 194.6 lb /88.5 kg BMI: 25.7 kg/m^2 *Oil Tanker Captain: * Christine Velasco RDCS RN *Referring Physician: * Iris Maddox ; Alex Ramirez *Reading Physician: * Atif Snider MD Indications: TIA. History: Coronary artery disease. Risk factors: Hypertension. Conclusions Summary: - Left ventricle: The cavity size is normal. Wall thickness is mildly to moderately increased. Wall motion is normal; there are no regional wall motion abnormalities. - Atrial septum: No defect or patent foramen ovale is identified. Negative bubble study. - Mitral valve: There is trace regurgitation. - Aortic valve: There is no evidence of stenosis. - Tricuspid valve: There is trace regurgitation. - Pulmonary arteries: Systolic pressure can not be accurately estimated. - Study data: No prior study is available for comparison. Study data: Transthoracic echocardiogram. Procedure: Transthoracic echocardiography was performed. Image quality was fair. A bubble study was performed using agitated normal saline on Images 1 and 2. Complete 2D, spectral Doppler, and color flow Doppler. Location: Emergency department. Patient status: Outpatient. Patient room number: ED 11. No prior study is available for comparison. Rhythm: Bradycardia. Findings Left ventricle: The cavity size is normal. Wall thickness is mildly to moderately increased. Systolic function is normal. The estimated ejection fraction is 55-60%. Wall motion is normal; there are no regional wall motion abnormalities. There is no consistent Doppler evidence of clinically significant diastolic dysfunction. Right ventricle: The cavity size is normal. Systolic function is normal. Left atrium: The atrium is normal in size. Right atrium: The atrium is normal in size. Atrial septum: No defect or patent foramen ovale is identified. Negative bubble study. Mitral valve: The leaflets are mildly thickened. There is no evidence of stenosis. There is trace regurgitation. Aortic valve: The valve is trileaflet. The leaflets are mildly thickened. There is no evidence of stenosis. There is no significant regurgitation. Tricuspid valve: The leaflets are normal thickness. There is trace regurgitation. Pulmonic valve: The leaflets are normal thickness. There is no evidence of stenosis. There is no significant regurgitation. Aorta: Aortic root: The aortic root is not dilated. Ascending aorta: The ascending aorta is not dilated. Aortic arch: The aortic arch is not dilated. Pericardium: There is no significant pericardial effusion. Pulmonary arteries: Not well visualized. Systolic pressure can not be accurately estimated. Systemic veins: Inferior vena cava: The vessel is normal in size. There is (< 50%) respiratory change in the IVC dimension. Measurements Left ventricle Value Ref Aortic valve Value Ref SUSSY, LAX 4.6 cm 4.2 - 5.8 Jackie diam, ED 2.3 cm ---- ESD, LAX 3.2 cm 2.5 - 4.0 Jackie diam/bsa, ED 1.1 cm/m^2 ---- FS, LAX 31 % 25 - 43 Peak v, S 1.1 m/sec ---- PW, ED (H) 1.3 cm 0.6 - 1.0 VTI, S 28.0 cm ---- IVS/PW, ED 0.99 Mean grad, S 3.0 mm Hg ---- E', lat jackie, TDI (L) 7.4 cm/sec >=10.0 Peak grad, S 5.0 mm Hg - --- E/e', lat jackie, 11 LVOT/AV, VTI ratio 0.75 ---- TDI E', med jackie, TDI (L) 6.2 cm/sec >=7.0 Mitral valve Value R ef E/e', med jackie, 13 Peak E 0.8 m/sec ---- TDI Peak A 0.66 m/sec ---- E', avg, TDI 6.8 cm/sec Decel time 169 ms ---- E/e', avg, TDI 12 <=14 Peak grad, D 2.6 mm Hg - --- Peak E/A ratio 1.2 ---- LVOT Value Ref Peak suleman, S 0.81 m/sec Pulmonic valve Value Ref VTI, S 21.1 cm Peak v, S 0.68 m/sec ---- Mean grad, S 2 mm Hg Peak grad, S 2.0 mm Hg ---- Ventricular septum Value Ref Aortic root Value Ref IVS, ED (H) 1.3 cm 0.6 - 1.0 Root diam 3.4 cm <4.2 Right ventricle Value Ref Ascending aorta Value Ref SUSSY, LAX 3.0 cm AAo AP diam, S 3.2 cm ---- SUSSY minor ax, A4C 2.8 cm 1.9 - 3.5 mid Aortic arch Value Ref Arch diam 2.7 cm ---- Left atrium Value Ref AP dim, ES 3.20 cm 3.00 - Decending aorta Value Ref 4.00 Bety peak suleman 0.63 m/sec ---- ML dim, A4C 4.7 cm SI dim, A4C 5.5 cm Inferior vena cava Value Ref Vol/bsa, ES, 1-p 23 ml/m^2 12 - 37 Diam 2.0 cm ---- A4C Vol/bsa, ES, A/L 25 ml/m^2 16 - 34 Right atrium Value Ref ML dim, ES, A4C 4.1 cm 2.6 - 4.4 SI dim, ES, A4C 5.2 cm 3.4 - 5.3 Estimated RAP 8 mm Hg Legend: (L) and (H) lala values outside specified reference range. Prepared and electronically signed by Atif Snider MD 08/29/2019 15:21
[2019-08-29 15:57] VITALS: BP 134/78
--- NOTE | 2019-08-29 22:04 | CONS ---
CONSULTATION REPORT: DATE OF CONSULT: 08/29/11 - EMERGENCY DEPT PATIENT OF: Dr. Maddox. HISTORY OF PRESENT ILLNESS: This is a 74-year-old right-handed man who presents today with an episode 8 days of leaning to the left while walking, there may have been some dragging of the left foot. It is unclear whether the dragging was an actual change for him. The leaning lasted 3 to 4 hours and has since resolved. I was contacted by Edilberto yesterday and I told him to come to the ER immediately. He elected to come today and I discussed the reasons of the possibility of further stroke in the short time since he may have had a TIA 7 days before. He also had colonoscopy schedule and was beginning his bowel prep. I recommended that he stop that and not get his colonoscopy and come to the ER. He has not had a past history of stroke or TIA and does have coronary artery disease and hypercholesterolemia, hypertension, and a history of MO. He also has diabetes. He has had a past history of seizure. PAST MEDICAL HISTORY: He has a history of cataracts. PAST SURGICAL HISTORY: Status post bilateral retinal surgery, cataract extraction, and basal cell cancer surgery on his scalp. MEDICATIONS: Medicines at home include: 1. Keppra 500 in the morning and 1000 at night. 2. Lipitor 80 mg daily. 3. Metoprolol 12.5 b.i.d. 4. Aspirin 81 mg daily. Of note, he stopped taking it about in the past couple of weeks time. 5. He is on metformin 750 b.i.d. ALLERGIES: He has no known drug allergies. SOCIAL HISTORY: He has no history of substance abuse other than being a former smoker. PHYSICAL EXAM: On exam, he is afebrile, pulse 55, respirations 15, blood pressure 127/67. He is alert and oriented with normal speech and comprehension. Cranial nerves II through XII were intact. Fundi were benign. Motor exam revealed normal tone, strength, coordination, and gait. Negative pronator drift. Negative heel-to- amador. Negative [id number]. Intact visual horvath. Chest: Clear. Cardiovascular: Regular rate and rhythm. Abdomen: Soft with positive bowel sounds. DIAGNOSTIC STUDIES/LAB DATA: He had a normal CT and CTA, normal EKG. He did have some mild chronic ischemic disease on his CT scan most likely. His cardiac echo was negative including a negative bubble study. IMPRESSION AND PLAN: I discussed with Edilberto and his that the most likely explanation for his symptoms a week ago could be transient ischemia attack, especially given his risk factors and the time course and the description of symptoms. We will be getting an MRI scan as an outpatient as well as getting a Holter. He will need fasting lipids as an outpatient as well as the MRI scan and the Holter. His primary has been contacted to set up the Holter by the ER. [id number]/[facility] #: [id number] LIDIA
== END 2019-08-29 15:56 | disposition home or self-care (01) ==
LOC: ED 08:20
DX: G45.9 Transient cerebral ischemic attack, unspecified (principal); Z87.891 Personal history of nicotine dependence; I25.10 Atherosclerotic heart disease of native coronary artery without angina pectoris; E78.00 Pure hypercholesterolemia, unspecified; I25.2 Old myocardial infarction; I10 Essential (primary) hypertension
CPT/HCPCS: 36415; 70450; 70496; 70498; 80053; 85025; 93005; 93306; 99283; Q9967

== ENCOUNTER 2023-05-31 22:00 | Observation (INO) ==
[2023-05-31 23:04] LABS: ABS Eosinophils 0.1 10^3/uL (0.0-0.5); ABS Lymphocytes 1.3 10^3/uL (1.0-4.8); ABS Monocytes 1.2 10^3/uL (0.0-1.1); ABS Neutrophils 10.1 10^3/uL (1.5-7.6); ABS Nucleated RBC 0.01 10^3/ul; Eosinophil % 0.5 %; Hematocrit 41.2 % (38-53); Hemoglobin 14.1 g/dL (13.2-16.3); Mean Corpuscular Hemoglobin 28.9 pg (27-33); Mean Corpuscular Hgb Conc 34.2 g/dL (31-36); Mean Corpuscular Volume 84.7 fL (80-97); Mean Platelet Volume 8.2 fL (7.5-11.2); Nucleated Red Blood Cells % 0.1 %/100WBC (0.0-0.8); Platelet Count 161 10^3/uL (150-450); Red Blood Count 4.86 10^6/uL (4.06-5.63); Red Cell Distribution Width 15.2 % (12-17); White Blood Count 12.7 10^3/uL (3.6-10.2)
[2023-05-31 23:05] LABS: Activated Partial Thrombo Time 28.9 seconds (26.0-38.0); INR 1.12 (0.83-1.13)
[2023-05-31] MEDS ORDERED: Iodixanol (CONTRAST) 320 MG/ML 100 ML SDV IV ONE (23:11)
[2023-05-31 23:24] LABS: Albumin 4.2 g/dL (3.2-5.2); Albumin/Globulin Ratio 1.6 (1-3); Calcium 9.3 mg/dL (8.6-10.3); Creatinine, Serum 0.89 mg/dL (0.67-1.17); Direct Bilirubin 0.2 mg/dL (0.03-0.18); Globulin 2.7 g/dL (2-4); HDL Cholesterol 41.3 mg/dL; Indirect Bilirubin 0.8 mg/dL (0.3-1.0); Potassium 3.9 mmol/L (3.5-5.0); Total Protein 6.9 g/dL (6.4-8.9); eGFR CKD-EPI 87.7 (>60)
[2023-06-01] MEDS ORDERED: Dextrose 50% Syringe 50 ml 25 GM/50 ML SYRINGE IV PUSH PRN (01:54)
[2023-06-01 07:47] LABS: ABS Eosinophils 0.1 10^3/uL (0.0-0.5); ABS Lymphocytes 1.2 10^3/uL (1.0-4.8); ABS Monocytes 0.9 10^3/uL (0.0-1.1); ABS Neutrophils 5.1 10^3/uL (1.5-7.6); ABS Nucleated RBC 0.01 10^3/ul; Eosinophil % 1.1 %; Hematocrit 40.8 % (38-53); Hemoglobin 13.5 g/dL (13.2-16.3); Lymphocyte % 16.4 %; Mean Corpuscular Hemoglobin 29.3 pg (27-33); Mean Corpuscular Hgb Conc 33.2 g/dL (31-36); Mean Corpuscular Volume 88.4 fL (80-97); Mean Platelet Volume 8.5 fL (7.5-11.2); Nucleated Red Blood Cells % 0.2 %/100WBC (0.0-0.8); Platelet Count 128 10^3/uL (150-450); Red Blood Count 4.61 10^6/uL (4.06-5.63); Red Cell Distribution Width 15.2 % (12-17); White Blood Count 7.3 10^3/uL (3.6-10.2)
[2023-06-01 08:15] LABS: Calcium 8.7 mg/dL (8.6-10.3); Creatinine, Serum 0.7 mg/dL (0.67-1.17); Potassium 3.5 mmol/L (3.5-5.0); eGFR CKD-EPI 94.3 (>60)
[2023-06-02 07:30] LABS: ABS Eosinophils 0.1 10^3/uL (0.0-0.5); ABS Lymphocytes 1.1 10^3/uL (1.0-4.8); ABS Monocytes 0.8 10^3/uL (0.0-1.1); ABS Neutrophils 4.7 10^3/uL (1.5-7.6); ABS Nucleated RBC 0.01 10^3/ul; Eosinophil % 1.9 %; Hematocrit 38.9 % (38-53); Hemoglobin 13.7 g/dL (13.2-16.3); Lymphocyte % 16.2 %; Mean Corpuscular Hemoglobin 29.6 pg (27-33); Mean Corpuscular Hgb Conc 35.3 g/dL (31-36); Mean Corpuscular Volume 84.1 fL (80-97); Mean Platelet Volume 8.3 fL (7.5-11.2); Nucleated Red Blood Cells % 0.1 %/100WBC (0.0-0.8); Platelet Count 136 10^3/uL (150-450); Red Blood Count 4.63 10^6/uL (4.06-5.63); Red Cell Distribution Width 14.7 % (12-17); White Blood Count 6.8 10^3/uL (3.6-10.2)
[2023-06-02 07:47] LABS: Calcium 8.9 mg/dL (8.6-10.3); Creatinine, Serum 0.71 mg/dL (0.67-1.17); Magnesium 1.8 mg/dL (1.9-2.7); Potassium 3.7 mmol/L (3.5-5.0); eGFR CKD-EPI 93.9 (>60)
[2023-06-02] MEDS ORDERED: Magnesium Sulfate 2 gm BAG 2 GM/50 ML BAG IVPB ONE (09:19)
[2023-06-02 14:30] VITALS: BP 138/67
== END 2023-06-02 15:15 | disposition home or self-care (01) ==
LOC: ED 22:00 → EDHOLD 22:00 → SUATTDRO 06-01 00:39 → MEDTELE 06-01 16:57
PROVIDERS: ADMIT Internal Medicine; ATTEND Internal Medicine